=== PATIENT | female | born 2000 | race African-American/Black ===

== ENCOUNTER 2023-01-09 07:37 | Outpatient (CLI) | payer OTHER | END 2023-01-09 07:51 | disposition home or self-care (01) | LOC: SONOGRAMA 07:37 | PROVIDERS: ATTEND Physical Medicine & Rehabilitation Pediatric Rehabilitation Medicine | DX: M60.88 Other myositis, other site (principal); S93.402A Sprain of unspecified ligament of left ankle, initial encounter; S92.352A Displaced fracture of fifth metatarsal bone, left foot, initial encounter for closed fracture ==